=== PATIENT | male | born 1990 | race Caucasian/White ===

== ENCOUNTER 2017-03-18 19:55 | Emergency (ER) | payer SELFPAY ==
[~2017-03-18] VITALS: Ht 177.8 cm; Wt 68.2 kg
[2017-03-18 20:00] VITALS: Ht 177.8 cm; Wt 68.2 kg
[2017-03-18] MEDS ORDERED: morphine 4 MG/ML VIAL IV STA (20:05)
[2017-03-18] MEDS ORDERED: ONDANSETRON 4 MG INJ IV STA (20:05)
[2017-03-18] MEDS ORDERED: NEOMYC/POLYMYX/BACIT 30 GM OINT TOP ONE (20:30)
[2017-03-18] MEDS ORDERED: DIPHTH/TET/ACEL PERTUSS (ADULT) 0.5 ML VIAL IM* ONE (20:30)
[2017-03-18] MEDS ORDERED: CEFTRIAXONE 1 GM/50 ML (PMX) 50 ML IVPB ONE (20:30)
[2017-03-18] MEDS ORDERED: SOD CHLORIDE 0.9% 1,000 ML IV ONE (20:30)
[2017-03-18] MEDS ORDERED: LIDOCAINE 1% (MDV) 20 ML INJ SC ONE (20:30)
[2017-03-18] MEDS ORDERED: IBUPROFEN 600 MG TAB PO ONE (21:00)
[2017-03-18] MEDS ORDERED: AMOX1TAB10 PO (21:57)
[2017-03-18] MEDS ORDERED: IBUP-1542 PO (21:57)
--- NOTE | 2017-03-18 22:11 | RADRPT ---
PROCEDURE: XR Right Ankle CLINICAL INDICATION: Possible foreign body TECHNIQUE: Standard 3 view radiographs were submitted. COMPARISON: None FINDINGS: Osseous structures: Well mineralized and intact with no fracture or destructive process identified. Joint spaces: Well maintained with no significant erosions or spurring evident. Soft tissues: There is a slight amount of subcutaneous air within ventral soft tissues at the mid lo wer leg but no radiopaque foreign body is evident. IMPRESSION: 1. The osseous elements and joint spaces appear unremarkable. 2. Small minus subcutaneous air is seen within the ventral soft tissues of the mid lower leg with n o radiopaque foreign body identified. Physician Evette Date Time Electronically viewed and signed by Physician Evette on 03/18/2017 22:10 /
--- NOTE | 2017-03-18 22:12 | RADRPT ---
PROCEDURE: CR Right Elbow CLINICAL INDICATION: Possible foreign body TECHNIQUE: AP, lateral, and an oblique radiographs were submitted. COMPARISON: None FINDINGS: Osseous Structures: The osseous elements appear well mineralized and intact. Joint Spaces: The joint spaces are well maintained. No joint effusion is evident. Soft Tissues: Subcutaneous air is seen within the soft tissues lateral to the elbow but no radiopaqu e foreign body is identified. IMPRESSION: 1. The osseous elements and joint spaces appear unremarkable. 2. Subcutaneous air is seen in the soft tissues lateral to the elbow joint but no radiopaque foreig n body is evident. Physician Evette Date Time Electronically viewed and signed by Physician Evette on 03/18/2017 22:11 /
--- NOTE | 2017-03-18 22:15 | RADRPT ---
PROCEDURE: XR Left Femur CLINICAL INDICATION: Dog bite TECHNIQUE: AP and lateral radiographs were submitted. COMPARISON: None FINDINGS: Osseous structures: appear well mineralized and intact with no fracture or osseous destruction evid ent. Joint spaces: are well maintained with no significant erosion or spurring evident. There is no sig nificant joint effusion Soft tissues: A few small foci of lucency are seen within the ventral medial mid thigh suspicious fo r faint subcutaneous air. No radiopaque foreign body is evident. IMPRESSION: 1. The osseous structures and joint spaces appear unremarkable. 2. An minus subcutaneous air seen within the ventral medial soft tissues of the midthigh with no ra diopaque foreign body identified. Physician Evette Date Time Electronically viewed and signed by Physician Evette on 03/18/2017 22:14 /
--- NOTE | 2017-03-18 22:36 | ERD ---
ER Documentation Chief Complaint Date/Time DATE: 03/18/17 TIME: 22:32 Chief Complaint PITBULL BITE ON RT ARM, LEFT THIGH, RT ANKLE ROS All systems reviewed and are negative except as per history of present illness. Medications Home Meds Active Scripts Amoxicillin/Potassium Clav (Amox-Clav 875-125 mg Tablet) 875-125 mg Tab, 1 TAB PO BID for 7 Days, #14 TAB Prov:NATAN BERRY MD 03/18/17 Ibuprofen* (Ibuprofen*) 600 Mg Tablet, 600 MG PO Q8 for PAIN AND/OR INFLAMMATION , #30 TAB Prov:NATAN BERRY MD 03/18/17 Allergies Allergies: Coded Allergies: No Known Drug Allergies (Verified Allergy, Unknown, 03/18/17) PMhx/Soc Active methamphetamine and heroin abuse. Medical and Surgical Hx: pt denies Medical Hx, pt denies Surgical Hx History of Surgery: No Anesthesia Reaction: No Hx Neurological Disorder: No Hx Respiratory Disorders: No Hx Cardiac Disorders: No Hx Psychiatric Problems: No Hx Miscellaneous Medical Probl: No Hx Alcohol Use: No Hx Substance Use: No Hx Tobacco Use: Yes Smoking Status: Current every day smoker FmHx Family History: No diabetes Physical Exam Vitals Vital Signs Date Time Temp Pulse Resp B/P Pulse Ox O2 Delivery O2 Flow Rate FiO2 03/18/17 20:00 99.1 133 22 123/101 96 Physical Exam GENERAL: Well-developed, well-nourished, well-hydrated, in no apparent distress , looks nontoxic in appearance HEENT: Moist mucous membranes, pink conjunctiva, no cervical spine tenderness or step-off deformities, no goiter, no jaundice or icterus, extraocular movements intact without pain. No submandibular induration, and no pharyngeal erythema NEURO: Alert and oriented 3, cranial nerves II through XII intact bilaterally, pupils equal round reactive to light, no focal deficits or facial asymmetry, sensation intact distally Strength 5/5 in upper and lower extremities bilaterally CARDIAC: Regular rate and rhythm, no murmurs rubs or gallops LUNGS: Clear bilaterally no wheezing crackles or stridor ABDOMEN: Soft nontender, no guarding, no rigidity, no rebound, no psoas sign no obturator sign. Normoactive bowel sounds SKIN: Warm and dry to touch, no abrasions, contusions, or hematomas, no lacerations, no ecchymosis, no target lesions, and without ulcers EXTREMITIES: Large soft tissue contusions and puncture wounds to the left thigh , right lower leg just proximal to the ankle, and right elbow. Distal pulses equal bilateral and sensation in the median, radial, ulnar nerves of the right upper extremity intact. There is also a 4 cm right lateral elbow laceration, gaping. PSYCH: Normal affect without agitation or irritability Results 24 hrs Current Medications Medications (Trade) Dose Ordered Sig/Sandeep Route PRN Reason Start Time Stop Time Status Last Admin Dose Admin Lidocaine (Xylocaine 1% (Mdv) 20 ml) 20 ml ONCE ONCE SC 03/18/17 20:30 03/18/17 20:31 DC Diphtheria/ Tetanus/Acell Pertussis 0.5 ml 0.5 ml ONCE ONCE IM* 03/18/17 20:30 03/18/17 20:31 DC 03/18/17 20:21 Ceftriaxone Sodium 50 ml @ 100 mls/hr ONCE ONCE IVPB 03/18/17 20:30 03/18/17 20:59 DC 03/18/17 20:19 Sodium Chloride (NS) 1,000 ml @ 1,000 mls/hr Q1H ONCE IV 03/18/17 20:30 03/18/17 21:29 DC 03/18/17 20:21 Morphine Sulfate (morphine) 4 mg ONCE STAT IV 03/18/17 20:05 03/18/17 20:10 DC 03/18/17 20:19 Ondansetron HCl (Zofran Inj) 4 mg ONCE STAT IV 03/18/17 20:05 03/18/17 20:10 DC 03/18/17 20:19 Neomycin/ Polymyxin/ Bacitracin (Neosporin Topical Oint) 1 applic ONCE ONCE TOP 03/18/17 20:30 03/18/17 20:31 DC 03/18/17 21:23 Ibuprofen (Motrin) 600 mg ONCE ONCE PO 03/18/17 21:00 03/18/17 21:01 DC 03/18/17 21:19 Procedures/MDM IV line was established patient was placed on teletypesetter monitor rhythm strip revealed a sinus rhythm at about 80 bpm with upright P and T waves. Patient was afebrile. I administered 1 L normal saline intravenously, morphine 4 mg IV, Zofran 4 mg IV , ibuprofen 600 mg p.o., ceftriaxone 1 g IV, tetanus toxoid 0.5 mL intramuscular injection. X-ray right elbow 3V Interpreted by me: Fat Pads: Normal Bones: No fracture Joints: No dislocation Foreign body: None, positive soft tissue air X-ray right ankle 3V Interpreted by me: Bones: No fracture Joints: No dislocation X-ray left femur 2V Interpreted by me: Bones: No fracture Joints: No dislocation Foreign body: None Procedure note: Laceration repair of the right elbow. Lidocaine anesthetic was applied to the subcutaneous tissue, skin was copiously irrigated with normal saline, no foreign bodies or debris was noted. After anesthetic took full effect applied for simple interrupted nonabsorbable nylon sutures to the large laceration. Final length of the laceration was 4 cm. Patient tolerated procedure well, tissue was debrided, antibiotic ointment applied, and gauze dressing applied over that. Patient feels much better at this time, and vital signs are normal, symptoms have improved. I did give strict instructions to return to the ED if symptoms continue or worsen, patient will otherwise follow-up with primary care physician. Patient understood instructions and agreed to plan. Disclaimer: Inadvertent spelling and grammatical errors are likely due to EHR/ dictation software use and do not reflect on the overall quality of patient care. Also, please note that the electronic time recorded on this note does not necessarily reflect the actual time of the patient encounter. Departure Diagnosis: Primary Impression: Dog bite Encounter type: initial encounter Qualified Code: W54.0XXA - Dog bite, initial encounter Additional Impressions: Contusion of soft tissue Arm laceration Encounter type: initial encounter Laterality: right Qualified Code: S41.111A - Arm laceration, right, initial encounter Drug abuse Condition: Good Patient Instructions: Dog Bite NATAN BERRY MD Mar 18, 2017 22:36
== END 2017-03-18 22:39 | disposition home or self-care (01) ==
LOC: E/R 19:55
DX: S41.111A Laceration without foreign body of right upper arm, initial encounter (principal); F19.10 Other psychoactive substance abuse, uncomplicated; F17.210 Nicotine dependence, cigarettes, uncomplicated; W54.0XXA Bitten by dog, initial encounter; Y92.9 Unspecified place or not applicable; Z23 Encounter for immunization
CPT/HCPCS: 73080; 73550; 73610; 90471; 90715; 96374; 96375; 99284; J0696; J2270; J2405; J7030

== ENCOUNTER 2017-04-26 16:23 | Inpatient (IN) | payer MEDICAID ==
[~2017-04-26] VITALS: Wt 65.5 kg
[~2017-04-26 16:23] MED LIST: AMOX1TAB10 PO; IBUP-1542 PO
[2017-04-26] MEDS ORDERED: morphine 4 MG/ML VIAL IV STA ×2 (16:53→21:51)
[2017-04-26] MEDS ORDERED: SOD CHLORIDE 0.9% 1,000 ML IV STA (16:53)
[2017-04-26] MEDS ORDERED: VANCOMYCIN 1.25 GM in SOD CHLORIDE 0.9% 250 ML IVPB ONE (17:00)
[2017-04-26] MEDS ORDERED: CLINDAMYCIN 900 MG/D5W (PMX) 50 ML IVPB SCH (17:30)
[2017-04-26 17:41] LABS: BASOPHILS % 0.3 % (0.0-2.0); EOSINOPHILS # 0.1 10^3/ul (0.0-0.5); EOSINOPHILS % 1.4 % (0.0-7.0); HEMATOCRIT 40.8 % (42.0-52.0); HEMOGLOBIN 13.7 g/dl (14.0-18.0); LYMPHOCYTES % 19.4 % (15.0-51.0); MEAN CORPUSCULAR HEMOGLOBIN 30.7 pg (29.0-33.0); MEAN CORPUSCULAR HGB CONC 33.6 g/dl (32.0-37.0); MEAN CORPUSCULAR VOLUME 91.5 fl (82.0-101.0); MONOCYTE # 0.6 10^3/ul (0.3-0.9); MONOCYTES % 6.1 % (0.0-11.0); NEUTROPHILS % 72.4 % (39.0-77.0); PLATELET COUNT 264 10^3/UL (140-415); RED BLOOD COUNT 4.46 10^6/ul (4.70-6.10); WHITE BLOOD COUNT 10.2 10^3/ul (4.8-10.8)
[2017-04-26 18:10] LABS: CALCIUM 9.4 mg/dl (8.4-10.2); CREATININE 0.77 mg/dl (0.61-1.24); POTASSIUM 3.4 mmol/L (3.5-5.1)
[2017-04-26] MEDS ORDERED: SOD CHLORIDE 0.9% 100 ML ONE (18:27)
[2017-04-26] MEDS ORDERED: IOHEXOL 300MG/ML 150 ML BTL ONE (18:27)
--- NOTE | 2017-04-26 19:30 | RADRPT ---
PROCEDURE: CT facial bones with contrast CLINICAL INDICATION: Right-sided facial abscess TECHNIQUE: A CT of the facial bones was performed on a GE 64-slice CT scanner utilizing high-resol ution axial images following the contrast administration of 80 cc of intravenous Omnipaque-300 Sagit orin, coronal, and multiplanar reformatted images were made. Additionally, 3-D reformatted images we re made. The CTDIvol is 53.77 mGy and the DLP is 1075.54 mGy-cm. COMPARISON: None available FINDINGS: The visualized imaged portions of the brain and calvarium are normal. The bilateral orbits are norm al. The preseptal and post septal spaces are normal. Symmetric bilateral superior ophthalmic veins are noted. The visualized paranasal sinuses and mastoid air cells are clear with incomplete pneuma tization of the left mastoid air cells. The bilateral middle ear cavities are clear. Inflammation is present in the right main lar subcutaneous tissues with edema also noted extending t o the right parotid tail and right spud driller space. Loss of clear fatty tissue planes are noted of the right platysma and right mastoid air muscles. No focal fluid collection or abscess is present. The inflammation and edema extends to the right parotid gland. No evidence for sialolithiasis is present. No evidence for pathologic lymphadenopathy is noted. Nonpathologic by size lymphadenopathy is prese nt in the right level I and level II spaces. The visualized nasopharynx is symmetric bilaterally. The oral cavity is normal. The oropharynx is r emarkable for moderate enlargement of the bilateral tonsils with moderate airway narrowing. The hypopharynx, supra glottis, glottis, and subglottic neck visualized appear normal. This cervical spine imaged demonstrates straightening of the normal cervical lordosis. IMPRESSION: 1. Right malar, spud driller space, and parotid space cellulitis and phlegmon without focal abscess f ormation. 2. Moderate bilateral tonsillar enlargement without abscess formation and moderate oral pharyngeal airway obstruction. 3. Nonpathologic right level I and level II lymphadenopathy. 4. Straightening of the normal cervical lordosis. A call report was made to Myrna RIBERA, at 04/26/2017 7:28:56 PM following the completion o f the examination by the undersigned. RPTAT: HDC .Mercy Hooper MD, MD Date Time Electronically viewed and signed by .Mercy Hooper MD, MD on 04/26/2017 19:30 .C/
[2017-04-26] MEDS ORDERED: ONDANSETRON 4 MG INJ IV PRN (22:00)
[2017-04-26] MEDS ORDERED: ACETAMINOPHEN 325 MG TAB PO PRN (22:00)
[2017-04-27 00:36] VITALS: PULSE 95; TEMP 97.4
[2017-04-27 01:03] VITALS: BP 122/72; RESP 16
== END 2017-04-27 01:14 | disposition left against medical advice (07) | DRG 603 ==
LOC: FTE 16:23 → MS2 21:54
PROVIDERS: ADMIT Internal Medicine; ATTEND Internal Medicine
DX: L02.01 Cutaneous abscess of face (principal); E87.6 Hypokalemia; D64.9 Anemia, unspecified; F17.210 Nicotine dependence, cigarettes, uncomplicated
CPT/HCPCS: 70486; 80048; 83605; 85025; 87040; 87070; J2270; J3370; J7030; J7050; Q9967